=== PATIENT | male | born 1970 | race Caucasian/White ===

== ENCOUNTER → 2020-10-05 12:36 | Outpatient (CLI) | payer BC, MEDICAID, SELFPAY ==
--- NOTE | 2020-10-05 12:43 | XR_ITS ---
PROCEDURE: XR CHEST 2V CLINICAL HISTORY: pneumothorax COMPARISON: No exams were available for comparison FINDINGS: No evidence of pneumothorax. No focal consolidation or pleural effusions. Cardiac size and central pulmonary vasculature within normal limits. Cardiac size and central pulmonary vasculature within normal limits. Multilevel degenerative changes of the visualized thoracic spine. The rib fractures are better visualized on the rib series radiographs. IMPRESSION: No focal consolidation or pneumothorax. Dictated by: Gracie Story 10/05/2020 13:19 Gracie Story in [facility] 10/05/2020 13:19
--- NOTE | 2020-10-05 12:43 | XR_ITS ---
PROCEDURE: XR RIBS LT 2V CLINICAL INDICATION: fracture ribs COMPARISON: No exams were available for comparison FINDINGS: There is mildly displaced fracture of the left 3rd, 4th and 5th ribs noted. No evidence of pneumothorax. The visualized left hemithorax is unremarkable. IMPRESSION: Mildly displaced left 3rd, 4th and 5th rib fractures. Results were called in to the physician's office at the time of the read. Dictated by: Gracie Story 10/05/2020 13:17 Gracie Story in [facility] 10/05/2020 13:17
== END ==
PROVIDERS: PCP Family Medicine; Visit Provider Family Medicine
DX: S22.49XA Multiple fractures of ribs, unspecified side, initial encounter for closed fracture (principal)
CPT/HCPCS: 71046; 71100